=== PATIENT | male | born 1985 | race Caucasian/White ===

== ENCOUNTER 2019-03-17 20:18 | Emergency (ER) | payer OTHER, MEDICAID ==
[~2019-03-17] VITALS: Ht 182.9 cm; Wt 90.7 kg
[2019-03-17] MEDS ORDERED: ONDANSETRON 4 MG TAB.RAPDIS ONE (20:40)
[2019-03-17] MEDS ORDERED: CLONIDINE HCL 0.1 MG TABLET ONE (20:40)
[2019-03-17] MEDS ORDERED: CLONIDINE HCL 0.1 MG TABLET PO ONE (21:00)
[2019-03-17] MEDS ORDERED: ONDANSETRON 4 MG TAB.RAPDIS SL ONE (21:00)
[2019-03-17 21:01] VITALS: BP 132/65
== END 2019-03-17 21:20 ==
LOC: ER 20:21
DX: F11.23 Opioid dependence with withdrawal (principal); F17.200 Nicotine dependence, unspecified, uncomplicated
CPT/HCPCS: 99283; Q0162

== ENCOUNTER 2019-07-22 23:07 | Emergency (ER) | payer MEDICAID, OTHER ==
[~2019-07-22] VITALS: Ht 182.9 cm; Wt 79.4 kg
--- NOTE | 2019-07-22 23:19 | NUR ---
PT AAOX4. AMBULATORY. BIBSELF C/O RIGHT THUMB SWELLING AND PAIN X 2 DAYS S/P DOG BITE, WORSE TODAY. MD AT BEDSIDE. NO ACUTE DISTRESS NOTED.
[2019-07-22] MEDS ORDERED: TDAP [DIPH/PERTUSSIS/TET] 0.5 ML VIAL IM ONE ×2 (23:26→23:30)
[2019-07-22] MEDS ORDERED: KETOROLAC TROMETHAMINE INJ 60 MG/2 ML VIAL IM ONE ×2 (23:26→23:30)
[2019-07-22] MEDS ORDERED: AMOX/CLAVULANATE 875 MG TABLET ONE (23:26)
[2019-07-22] MEDS ORDERED: AMOX/CLAVULANATE 875 MG TABLET PO ONE (23:30)
--- NOTE | 2019-07-22 23:44 | NUR ---
Patient discharged to home in stable condition. Written and verbal after care instructions given. Patient verbalizes understanding of instruction. PT ambulatory with a steady gait.
[2019-07-22 23:45] VITALS: BP 130/82
== END 2019-07-22 23:46 | disposition home or self-care (01) ==
LOC: ER 23:08
DX: L03.011 Cellulitis of right finger (principal); F10.10 Alcohol abuse, uncomplicated; F17.200 Nicotine dependence, unspecified, uncomplicated; Y90.9 Presence of alcohol in blood, level not specified
CPT/HCPCS: 90471; 90715; 96372; 99283; 99406; J1885

== ENCOUNTER 2020-09-04 08:34 | Emergency (ER) | payer OTHER, MEDICAID ==
[~2020-09-04] VITALS: Ht 175.3 cm; Wt 70.3 kg
[2020-09-04 08:34] VITALS: BP 126/74
[2020-09-04] MEDS ORDERED: ONDANSETRON 4 MG TAB.RAPDIS ONE (08:49)
[2020-09-04] MEDS ORDERED: IBUPROFEN 600 MG TABLET ONE (08:49)
--- NOTE | 2020-09-04 08:54 | NUR ---
discharged patient in custody accompanied by [employer] in no distress.
[2020-09-04] MEDS ORDERED: ONDANSETRON 4 MG TAB.RAPDIS SL ONE (09:00)
[2020-09-04] MEDS ORDERED: IBUPROFEN 600 MG TABLET PO ONE (09:00)
== END 2020-09-04 08:53 ==
LOC: ER 08:44
DX: Z02.89 Encounter for other administrative examinations (principal); F11.10 Opioid abuse, uncomplicated; F17.200 Nicotine dependence, unspecified, uncomplicated
CPT/HCPCS: 99283; Q0162

== ENCOUNTER 2023-05-28 19:11 | Emergency (ER) | payer MEDICAID, OTHER ==
[~2023-05-28] VITALS: Ht 172.7 cm; Wt 74.8 kg
[2023-05-28] MEDS ORDERED: MORPHINE SULFATE INJ 2 MG/ML DISP.SYRIN IV ONE (19:30)
[2023-05-28] MEDS ORDERED: ONDANSETRON HCL/PF 4 MG/2 ML VIAL IVP ONE (19:30)
[2023-05-28] MEDS ORDERED: IV NS 0.9% 1,000 ML BAG IV ONE (19:30)
[2023-05-28 19:31] LABS: BASOPHILS # (AUTO) 0.1 K/uL (0.0-0.2); BASOPHILS % (AUTO) 0.6 % (0.0-2.0); EOSINOPHILS # (AUTO) 0.1 K/uL (0.0-0.7); HEMATOCRIT 40 % (39-51); HEMOGLOBIN 13.4 g/dL (13.5-17.5); LYMPHOCYTES % (AUTO) 11.1 % (20.0-44.0); MEAN CORPUSCULAR HEMOGLOBIN 30 PG (26.0-33.0); MEAN CORPUSCULAR HGB CONC 34 g/dl (31.0-36.0); MEAN CORPUSCULAR VOLUME 90 fL (80-96); MONOCYTES # (AUTO) 0.3 K/uL (0.1-1.30); MONOCYTES % (AUTO) 3.7 % (2.0-12.0); NEUTROPHILS # (AUTO) 7.8 K/uL (1.8-8.9); NEUTROPHILS % (AUTO) 83.6 % (43.0-81.0); PLATELET COUNT (AUTO) 262 K/uL (150-450); RED BLOOD CELL COUNT(AUTO) 4.45 MIL/uL (4.5-6.0); RED CELL DISTRIBUTION WIDTH 13.4 % (11.5-15.0); WHITE BLOOD COUNT (AUTO) 9.4 K/uL (4.3-11.0)
[2023-05-28] MEDS ORDERED: ONDANSETRON HCL/PF 4 MG/2 ML VIAL ONE (19:47)
[2023-05-28] MEDS ORDERED: MORPHINE SULFATE INJ 4 MG/ML DISP.SYRIN ONE (19:47)
[2023-05-28 19:55] LABS: CALCIUM, SERUM 9.4 mg/dL (8.5-10.1); CARBON DIOXIDE 24 mmol/L (21-32); CHLORIDE 106 mmol/L (98-107); CREATININE 0.9 mg/dL (0.6-1.3); GLUCOSE 110 mg/dL (74-106); POTASSIUM 3.8 mmol/L (3.5-5.1); SODIUM SERUM 137 mmol/L (136-145); UREA NITROGEN, BLOOD 8 mg/dL (7-18)
[2023-05-28 20:00] LABS: ALANINE AMINOTRANSFERASE 21 U/L (12-78); ALBUMIN 3.9 g/dL (3.4-5.0); ALCOHOL, BLOOD < 3 mg/dL (0-10); ALKALINE PHOSPHATASE 71 U/L (46-116); ASPARTATE AMINOTRANSFERASE 15 U/L (15-37); BILIRUBIN,DIRECT 0.2 mg/dL (0.0-0.2); SALICYLATE 4.9 mg/dL (2.8-20.0); TOTAL PROTEIN, SERUM 7.4 g/dL (6.4-8.2)
[2023-05-28 20:09] LABS: ACETAMINOPHEN 0 ug/ml (10-30)
[2023-05-28 20:15] LABS: BILIRUBIN,TOTAL 0.6 mg/dL (0.2-1.0)
[2023-05-28] MEDS ORDERED: NALO4SPR BNOSTRILS (20:24)
[2023-05-28 20:49] LABS: BARBITURATE, URINE NEGATIVE (NEGATIVE); BENZODIAZEPINE, URINE NEGATIVE (NEGATIVE); COCCAINE, URINE NEGATIVE (NEGATIVE); PHENCYCLIDINE SCREEN,URINE NEGATIVE (NEGATIVE)
[2023-05-28 20:51] VITALS: BP 106/65; TEMP 98.1; O2SAT 98
[2023-05-28 20:51] LABS: AMPHETAMINE, URINE POSITIVE (NEGATIVE); CANNABINOID, URINE POSITIVE (NEGATIVE); OPIATE, URINE POSITIVE (NEGATIVE)
[2023-05-28 21:15] LABS: APPEARANCE,URINE CLEAR (CLEAR); BILIRUBIN,URINE 1+ (NEGATIVE); BLOOD, URINE NEGATIVE Ery/uL (NEGATIVE); COLOR,URINE YELLOW (YELLOW); KETONES,URINE 3+ mg/dL (NEGATIVE); LEUKOCYTE ESTERASE ,URINE NEGATIVE (NEGATIVE); NITRITE, URINE NEGATIVE (NEGATIVE); PH,URINE 8.5 (5.0-8.0); PROTEIN,URINE TRACE mg/dl (NEGATIVE); UGLUCOSE NEGATIVE (NEGATIVE)
[2023-05-28 21:28] LABS: ADD URINE CULTURE NO; BACTERIA,URINE None seen /HPF (None Seen); RBC,URINE 0-2 /HPF (0-2); SQUAMOUS EPITHELIAL CELL,UR 0-2 /HPF (None Seen); WBC,URINE 0-2 /HPF (0-3)
== END 2023-05-28 20:52 | disposition home or self-care (01) ==
LOC: ER 19:12
DX: F11.13 Opioid abuse with withdrawal (principal); F17.200 Nicotine dependence, unspecified, uncomplicated
CPT/HCPCS: 99284; 96374; 96361; 96375; 85025; 80048; 80076; 81001; 36415; 80143; 80320; 80307; J2270; J2405; J7030; G0480